=== PATIENT | male | born 2000 | race Caucasian/White ===

== ENCOUNTER 2021-06-10 21:25 | Emergency (ER) | payer OTHER ==
[~2021-06-10] VITALS: Ht 180.3 cm; Wt 95.0 kg
[2021-06-10 22:06] VITALS: BP 149/60
[2021-06-10] MEDS ORDERED: IBUPROFEN 600MG TABLET PO ONE (22:15)
[2021-06-10] MEDS ORDERED: LIDOCAINE HCL/EPINEPHRINE 1%-EPI 1:100,000 20 ML VIAL INFIL ONE (22:15)
[2021-06-10] MEDS ORDERED: BACITRACIN ZINC OINT UDPKT TOP ONE (22:15)
[2021-06-10] MEDS ORDERED: TETANUS, DIPHTHERIA, PERTUSSIS VAC/PF 0.5ML (>10YR OLD) IM ONE (22:15)
== END 2021-06-11 02:00 | disposition left against medical advice (07) ==
LOC: ER 21:25
DX: S81.012A Laceration without foreign body, left knee, initial encounter (principal); G62.9 Polyneuropathy, unspecified; F14.10 Cocaine abuse, uncomplicated; W18.39XA Other fall on same level, initial encounter; Y93.89 Activity, other specified; Y92.89 Other specified places as the place of occurrence of the external cause
CPT/HCPCS: 73562; 99283